=== PATIENT | female | born 1990 ===

== ENCOUNTER → 2018-01-06 | Outpatient (CLI) | payer BC, OTHER ==
[~2018-01-06] MED LIST: Abreva2 GM TOP; DIPH50 PO; HYDR1TAB94 PO; IBUP800 PO; Verotin-Gr Cap1 EACH PO
== END | disposition home or self-care (01) ==
LOC: LAB 15:58
DX: Z36.85 Encounter for antenatal screening for Streptococcus B (principal)
CPT/HCPCS: 87081; 87653

== ENCOUNTER 2018-02-11 09:43 | Inpatient (IN) | payer BC, OTHER ==
[~2018-02-11] VITALS: Ht 167.6 cm; Wt 82.0 kg
[2018-02-11] MEDS ORDERED: HYDR1TAB94 PO (10:56)
[2018-02-11] MEDS ORDERED: Verotin-Gr Cap1 EACH PO (10:56)
[2018-02-11] MEDS ORDERED: Abreva2 GM TOP (10:57)
[2018-02-11] MEDS ORDERED: DIPH50 PO (10:57)
[2018-02-11 12:24] LABS: BASOPHILS ABSOLUTE AUTO 0.04 K/mm3 (0.00-0.23); BASOPHILS PERCENT AUTO 0 % (0-2); EOSINOPHILS ABSOLUTE AUTO 0.04 K/mm3 (0.00-0.68); EOSINOPHILS PERCENT AUTO 0 % (0-6); Hematocrit 34.1 % (33.0-51.0); Hemoglobin 10.7 g/dL (11.5-16.0); IMMATURE GRAN ABSOLUTE AUTO 0.04 K/mm3 (0.00-0.10); IMMATURE GRAN PERCENT AUTO 0 % (0-1); LYMPHOCYTES ABSOLUTE AUTO 1.68 K/mm3 (0.84-5.20); LYMPHOCYTES PERCENT AUTO 15 % (21-46); MONOCYTES ABSOLUTE AUTO 0.58 K/mm3 (0.16-1.47); MONOCYTES PERCENT AUTO 5 % (4-13); Mean Corpuscular HGB 26.2 pg (26.0-34.0); Mean Corpuscular HGB Conc 31.4 g/dL (31.5-36.5); Mean Corpuscular Volume 83 fL (80-100); NEUTROPHILS ABSOLUTE AUTO 8.76 K/mm3 (1.96-9.15); NEUTROPHILS PERCENT AUTO 79 % (41-73); Platelet Count 158 K/mm3 (150-400); RDW Coefficient Variation 13.7 % (11.7-14.2); RDW Standard Deviation 41.5 fL (35.1-46.3); Red Blood Cell Count 4.09 M/mm3 (3.80-5.20); White Blood Cell Count 11.14 K/mm3 (4.00-11.30)
[2018-02-11 12:26] LABS: Mean Platelet Volume 13.3 fL (9.1-12.4)
[2018-02-12 05:47] LABS: BASOPHILS ABSOLUTE AUTO 0.05 K/mm3 (0.00-0.23); BASOPHILS PERCENT AUTO 0 % (0-2); EOSINOPHILS ABSOLUTE AUTO 0.02 K/mm3 (0.00-0.68); EOSINOPHILS PERCENT AUTO 0 % (0-6); Hematocrit 34.1 % (33.0-51.0); Hemoglobin 10.4 g/dL (11.5-16.0); IMMATURE GRAN ABSOLUTE AUTO 0.08 K/mm3 (0.00-0.10); IMMATURE GRAN PERCENT AUTO 1 % (0-1); LYMPHOCYTES ABSOLUTE AUTO 1.28 K/mm3 (0.84-5.20); LYMPHOCYTES PERCENT AUTO 7 % (21-46); MONOCYTES ABSOLUTE AUTO 1.02 K/mm3 (0.16-1.47); MONOCYTES PERCENT AUTO 6 % (4-13); Mean Corpuscular HGB 25.9 pg (26.0-34.0); Mean Corpuscular HGB Conc 30.5 g/dL (31.5-36.5); Mean Corpuscular Volume 85 fL (80-100); Mean Platelet Volume 12.8 fL (9.1-12.4); NEUTROPHILS ABSOLUTE AUTO 15.07 K/mm3 (1.96-9.15); NEUTROPHILS PERCENT AUTO 86 % (41-73); Platelet Count 133 K/mm3 (150-400); RDW Coefficient Variation 13.6 % (11.7-14.2); RDW Standard Deviation 42.2 fL (35.1-46.3); Red Blood Cell Count 4.02 M/mm3 (3.80-5.20); White Blood Cell Count 17.52 K/mm3 (4.00-11.30)
[2018-02-13] MEDS ORDERED: IBUP800 PO (12:47)
== END 2018-02-13 13:30 | disposition home or self-care (01) | DRG 775 ==
LOC: OBS 09:43 → BC 11:40
PROVIDERS: Obstetrics & Gynecology
PROC: 10E0XZZ Delivery of Products of Conception, External Approach (ICD-10-PCS; principal; 2018-02-12)
PROC: 0KQM0ZZ Repair Perineum Muscle, Open Approach (ICD-10-PCS; 2018-02-12)
PROC: 10907ZC Drainage of Amniotic Fluid, Therapeutic from Products of Conception, Via Natural or Artificial Opening (ICD-10-PCS; 2018-02-12)
DX: O77.0 Labor and delivery complicated by meconium in amniotic fluid (principal); O70.1 Second degree perineal laceration during delivery; Z37.0 Single live birth; Z3A.40 40 weeks gestation of pregnancy
CPT/HCPCS: 36415; 51702; 85025; J1885; J2001; J2210; J2405; J2590; J7120